=== PATIENT | female | born 1940 | race Caucasian/White ===

== ENCOUNTER 2022-07-23 11:29 | Emergency (ER) | payer MEDICARE, BC ==
[~2022-07-23] VITALS: Ht 157.5 cm; Wt 56.7 kg
--- NOTE | 2022-07-23 11:41 | NUR ---
DR MENON AT BEDSIDE
[2022-07-23] MEDS ORDERED: IV NS 0.9% 500 ML BAG IV ONE (12:00)
--- NOTE | 2022-07-23 12:15 | NUR ---
PATIENT NOT ABLE TO PROVIDE URINE SAMPLE AT THIS TIME. AWARE
[2022-07-23 12:16] LABS: BASOPHILS % (AUTO) 0.8 % (0.0-2.0); EOSINOPHILS % (AUTO) 1.2 % (0.0-6.0); HEMATOCRIT 37 % (33-45); HEMOGLOBIN 12.1 g/dL (11.5-14.8); LYMPHOCYTES # (AUTO) 1.6 K/uL (0.8-4.8); MEAN CORPUSCULAR HGB CONC 33 g/dl (31.0-36.0); MEAN CORPUSCULAR VOLUME 89 fL (82-100); MONOCYTES # (AUTO) 0.3 K/uL (0.1-1.30); MONOCYTES % (AUTO) 6.4 % (2.0-12.0); NEUTROPHILS # (AUTO) 2.6 K/uL (1.8-8.9); NEUTROPHILS % (AUTO) 56.6 % (43.0-81.0); PLATELET COUNT (AUTO) 244 K/uL (150-450); RED BLOOD CELL COUNT(AUTO) 4.14 MIL/uL (4.0-5.2); WHITE BLOOD COUNT (AUTO) 4.6 K/uL (4.3-11.0)
[2022-07-23 12:42] LABS: ALANINE AMINOTRANSFERASE 17 U/L (12-78); ALBUMIN 3.6 g/dL (3.4-5.0); ALKALINE PHOSPHATASE 86 U/L (46-116); ASPARTATE AMINOTRANSFERASE 20 U/L (15-37); BILIRUBIN,DIRECT 0.1 mg/dL (0.0-0.2); BILIRUBIN,TOTAL 0.6 mg/dL (0.2-1.0); CALCIUM, SERUM 9.5 mg/dL (8.5-10.1); CARBON DIOXIDE 25 mmol/L (21-32); CHLORIDE 102 mmol/L (98-107); GLUCOSE 162 mg/dL (74-106); LIPASE 96 U/L (73-393); POTASSIUM 4.5 mmol/L (3.5-5.1); SODIUM SERUM 135 mmol/L (136-145); TOTAL PROTEIN, SERUM 7.2 g/dL (6.4-8.2); UREA NITROGEN, BLOOD 17 mg/dL (7-18)
--- NOTE | 2022-07-23 13:08 | NUR ---
PATIENT NOT ABLE TO PROVIDE URINE SAMPLE AT THIS TIME, MD RANDALL
--- NOTE | 2022-07-23 14:05 | NUR ---
PATIENT NOT ABLE TO PROVIDE URINE SAMPLE AT THIS TIME. AWARE
--- NOTE | 2022-07-23 14:29 | NUR ---
Patient discharged to home in stable condition with daughter. Written and verbal after care instructions given. Patient verbalizes understanding of instruction.
[2022-07-23 14:30] VITALS: BP 121/64
--- NOTE | 2022-07-23 14:30 | NUR ---
IV removed. Catheter intact and site benign. Pressure and 4x4 applied to site. No bleeding noted.
== END 2022-07-23 14:31 | disposition home or self-care (01) ==
LOC: ER 11:31
DX: K52.89 Other specified noninfective gastroenteritis and colitis (principal); R61 Generalized hyperhidrosis; R11.2 Nausea with vomiting, unspecified; I10 Essential (primary) hypertension; F32.A Depression, unspecified; Z87.19 Personal history of other diseases of the digestive system
CPT/HCPCS: 99285; 74176; 93005; 85025; 80048; 83690; 80076; 36415; 84484; 85730; J7040